=== PATIENT | female | born 1990 | race American Indian/Alaskan Native ===

== ENCOUNTER 2021-06-02 19:48 | Emergency (ER) | payer SELFPAY ==
[2021-06-03] MEDS ORDERED: ONDANSETRON 4 MG ODT TAB PO ONE (03:10)
[2021-06-03] MEDS ORDERED: predniSONE 50 MG TAB PO ONE (03:10)
[2021-06-03 04:16] LABS: Alanine Aminotransferase 30 units/L (7-56); Albumin 4.5 g/dL (3.9-5); Blood Urea Nitrogen 11 mg/dL (7-17); Calcium 9.2 mg/dL (8.4-10.2); Hemolysis Index 5
[2021-06-03 04:33] LABS: Hematocrit 43.9 % (30.3-42.9); Hemoglobin 14.3 gm/dl (10.1-14.3); Mean Corpuscular HGB Conc 33 % (30-34); Mean Corpuscular Volume 94 fl (79-97); Platelet Count 199 K/mm3 (140-440); Red Blood Count 4.69 M/mm3 (3.65-5.03); Red Cell Distribution Width 13.4 % (13.2-15.2)
[2021-06-03 04:40] LABS: BUN/Creatinine Ratio 16
[2021-06-03 05:23] LABS: Bacteria,Urine 1+ /HPF (Negative); Bilirubin,Urine NEG (Negative); Blood,Urine NEG (Negative); Color,Urine Yellow (Yellow); Mucus,Urine 3+ /HPF; Protein,Urine <15 mg/dL mg/dL (Negative); Urobilinogen,Urine < 2.0 mg/dL (<2.0)
--- NOTE | 2021-06-03 06:14 | Emergency Department Report ---
- General Chief Complaint: Chest Pain Stated Complaint: CHEST PAIN PUI?: Yes Source: patient Mode of arrival: Ambulatory Limitations: No Limitations - History of Present Illness Initial Comments: Patient is a 31-year-old -[place] female with no past medical history presented to the ED with complaint of acute onset persistent nasal and sinus congestion, frontal sinus pressure and headache, persistent dry cough with pleuritic chest pain, diffuse body aches and pains for the last 24 hours. Patient states that she has not been able to sleep because of worsening joint pains and diffuse body aches. Patient denies dizziness, syncope, chest pain, shortness of breath, nausea and vomiting, diarrhea, dysuria, urinary frequency and urgency, abdominal pain or sore throat. MD Complaint: cough, rhinorrhea, nasal congestion, sinus pain, other (Pleuritic chest pain) -: Sudden, hour(s) (24) Severity: moderate Severity scale (0 -10): 6 Quality: sharp, aching Consistency: constant Improves With: nothing Worsens With: deep breaths (Or cough) Context: sick contacts Associated Symptoms: denies other symptoms, myalgias, diaphoresis, headache, rhinorrhea, nasal congestion, cough, chest pain (Pleuritic chest pain). denies: fever, chills, sore throat, stiff neck, shortness of breath, abdominal pain, nausea, diarrhea, dysuria, rash, confusion, right sweats, hoarseness Treatments Prior to Arrival: none - Related Data Previous Rx's Medication Instructions Recorded Last Taken Type Azithromycin [Zithromax Z-CALIXTO] 250 mg PO DAILY #6 tablet 06/03/21 Unknown Rx Benzonatate [Tessalon Perles] 100 mg PO Q8HR #30 capsule 06/03/21 Unknown Rx Cetirizine HCl [Zyrtec 10mg tab] 10 mg PO DAILY #30 tablet 06/03/21 Unknown Rx Ibuprofen [Motrin] 800 mg PO Q8HR PRN #30 tablet 06/03/21 Unknown Rx methylPREDNISolone [Medrol 4MG 4 mg PO DAILY #21 tab.ds.pk 06/03/21 Unknown Rx DOSEPAK (21 tabs)] Allergies Allergy/AdvReac Type Severity Reaction Status Date / Time metoclopramide [From Reglan] Allergy Angioedema Verified 06/02/21 23:15 ED Review of Systems ROS: Stated complaint: CHEST PAIN Other details as noted in HPI Constitutional: denies: chills, fever Eyes: denies: eye pain, eye discharge, vision change ENT: congestion, other (Nasal and sinus congestion). denies: ear pain, throat pain Respiratory: cough Cardiovascular: chest pain (Pleuritic chest pain). denies: palpitations Endocrine: no symptoms reported Gastrointestinal: denies: abdominal pain, nausea, vomiting, diarrhea Genitourinary: denies: urgency, dysuria, frequency, discharge, abnormal menses, dyspareunia Musculoskeletal: arthralgia. denies: back pain, joint swelling Skin: denies: rash, lesions Neurological: headache. denies: weakness, paresthesias Psychiatric: denies: anxiety, depression Hematological/Lymphatic: denies: easy bleeding, easy bruising ED Past Medical Hx - Past Medical History Previous Medical History?: No - Surgical History Past Surgical History?: No - Medications Home Medications: Home Medications Medication Instructions Recorded Confirmed Last Taken Type Azithromycin [Zithromax Z-CALIXTO] 250 mg PO DAILY #6 tablet 06/03/21 Unknown Rx Benzonatate [Tessalon Perles] 100 mg PO Q8HR #30 capsule 06/03/21 Unknown Rx Cetirizine HCl [Zyrtec 10mg tab] 10 mg PO DAILY #30 tablet 06/03/21 Unknown Rx Ibuprofen [Motrin] 800 mg PO Q8HR PRN #30 tablet 06/03/21 Unknown Rx methylPREDNISolone [Medrol 4MG 4 mg PO DAILY #21 tab.ds.pk 06/03/21 Unknown Rx DOSEPAK (21 tabs)] ED Physical Exam - General Limitations: No Limitations General appearance: alert, in no apparent distress - Head Head exam: Present: atraumatic, normocephalic, normal inspection - Eye Eye exam: Present: normal appearance, PERRL, EOMI Pupils: Present: normal accommodation - ENT ENT exam: Present: normal orophraynx, mucous membranes moist, TM's normal bilaterally, normal external ear exam, other (Grossly congested nasal passages; palpable frontal sinus tenderness) - Neck Neck exam: Present: normal inspection, full ROM. Absent: tenderness - Respiratory Respiratory exam: Present: normal lung sounds bilaterally. Absent: respiratory distress, wheezes, rales, rhonchi, chest wall tenderness, accessory muscle use, decreased breath sounds - Cardiovascular Cardiovascular Exam: Present: regular rate, normal rhythm, normal heart sounds. Absent: systolic murmur, diastolic murmur, rubs, gallop - GI/Abdominal GI/Abdominal exam: Present: soft, normal bowel sounds. Absent: tenderness, guarding, rebound, hyperactive bowel sounds, hypoactive bowel sounds, organomegaly - Extremities Exam Extremities exam: Present: normal inspection, full ROM, normal capillary refill - Back Exam Back exam: Present: normal inspection, full ROM. Absent: tenderness, CVA tenderness (R), CVA tenderness (L), muscle spasm, paraspinal tenderness - Neurological Exam Neurological exam: Present: alert, oriented X3, CN II-XII intact, normal gait, reflexes normal - Psychiatric Psychiatric exam: Present: normal affect, normal mood - Skin Skin exam: Present: warm, dry, intact, normal color. Absent: rash ED Course Vital Signs 06/02/21 23:16 Temperature 98.4 F Pulse Rate 82 Respiratory 18 Rate Blood Pressure 156/102 O2 Sat by Pulse 100 Oximetry ED Medical Decision Making - Lab Data Result diagrams: 06/03/21 03:22 06/03/21 03:22 - Radiology Data Radiology results: report reviewed, image reviewed Chest x-ray showed no acute cardiopulmonary abnormalities or pneumonitis. - Medical Decision Making This is a 31-year-old -[place] female with no past medical history presented to the ED with complaint of acute onset persistent nasal and sinus congestion, frontal sinus pressure and headache, persistent dry cough with pleuritic chest pain, diffuse body aches and pains for the last 24 hours. Patient states that she has not been able to sleep because of worsening joint pains and diffuse body aches. In the ED, patient is alert and oriented x3 and is not in any distress. Chest x-ray showed no acute cardiopulmonary abnormal ities or pneumonitis. Lab test results were reviewed and are all nonactionable. Patient was treated for pain in the ED. On reevaluation, patient pain is well controlled medication. Patient will discharge home on medications and advised to follow-up with her primary care physician in 7 to 10 days for reevaluation. Patient was advised return to the ED immediately if symptoms get worse. - Differential Diagnosis Bronchitis; pneumonia; URI; sinusitis; influenza Critical care attestation.: If time is entered above; I have spent that time in minutes in the direct care of this critically ill patient, excluding procedure time. ED Disposition Clinical Impression: Acute upper respiratory infection Acute bronchitis Qualifiers: Bronchitis organism: unspecified organism Qualified Code(s): J20.9 - Acute bronchitis, unspecified Disposition: HOME / SELF CARE / HOMELESS Is pt being admited?: No Does the pt Need Aspirin: No Condition: Stable Instructions: Acute Bronchitis (ED), Upper Respiratory Infection, Adult, [id number], Acute Bronchitis, Adult, [id number] Additional Instructions: All lab test results were reviewed and are all nonactionable. Chest x-ray showe d no acute cardiopulmonary abnormalities or pneumonitis. Therefore take medication with food, drink plenty of fluids and follow-up with your primary care in 5 to 7 days for reevaluation. Return to the ED immediately if symptoms get worse. Prescriptions: methylPREDNISolone [Medrol 4MG DOSEPAK (21 tabs)] 4 mg PO DAILY #21 tab.ds.pk Ibuprofen [Motrin] 800 mg PO Q8HR PRN #30 tablet PRN Reason: Pain , Severe (7-10) Benzonatate [Tessalon Perles] 100 mg PO Q8HR #30 capsule Azithromycin [Zithromax Z-CALIXTO] 250 mg PO DAILY #6 tablet Cetirizine HCl [Zyrtec 10mg tab] 10 mg PO DAILY #30 tablet Referrals: [facility] [Provider Group] - 7-10 days Time of Disposition: 06:15 Print Language: INDONESIAN
--- NOTE | 2021-06-03 06:26 | XRay Report ---
CHEST 1 VIEW 06/03/2021 5:16 AM INDICATION / CLINICAL INFORMATION: Cough, chest tightness. COMPARISON: None available. FINDINGS: SUPPORT DEVICES: None. HEART / MEDIASTINUM: No significant abnormality. LUNGS / PLEURA: No significant pulmonary or pleural abnormality. No pneumothorax. ADDITIONAL FINDINGS: No significant additional findings. IMPRESSION: 1. No acute findings. Signer Name: Germán Singletary DO Signed: 06/03/2021 6:22 AM Workstation Name: [id number]
[2021-06-03 07:28] LABS: Band Neutrophils # (Manual) 0.1 K/mm3; Total Cells Counted 100
[2021-06-03 07:29] LABS: Platelet Estimate Consistent w Auto; RBC Morphology Normal
[2021-06-03 08:06] VITALS: BP 112/74
--- NOTE | 2021-06-04 09:39 | Electrocardiograph Report ---
[facility] Test Date: 2021-06-03 Test Time: 02:47:26 Pat Name: NEFTALY RODRIGUEZ Department: Room: Gender: F Internal Communications Writer: NURSE : 1990 Requested By: CHARLES BRAXTON Order Number: [id number] Reading MD: Osvaldo Hand Measurements Intervals [place] Rate: 73 P: 29 WV: 134 QRS: 67 QRSD: 92 T: 47 QT: 423 QTc: 467 Interpretive Statements Sinus rhythm No previous ECG available for comparison Electronically Signed On 06-04-2021 9:38:24 EST by Osvaldo Hand
== END 2021-06-03 08:05 | disposition home or self-care (01) ==
LOC: ED 19:48
DX: J06.9 Acute upper respiratory infection, unspecified (principal); J20.9 Acute bronchitis, unspecified
CPT/HCPCS: 36415; 71045; 80053; 81001; 84484; 84703; 85007; 85025; 93005; 99283; J7512; J3490; Q0162